=== PATIENT | male | born 1975 | race Two or more races ===

== ENCOUNTER 2019-07-19 05:02 | Emergency (ER) | payer OTHER, BC ==
[~2019-07-19] VITALS: Ht 180.3 cm; Wt 105.9 kg
[2019-07-19 05:07] VITALS: Ht 180.3 cm; Wt 105.9 kg
[2019-07-19 07:05] VITALS: BP 144/92
== END 2019-07-19 07:05 | disposition home or self-care (01) ==
LOC: ED 05:02
DX: S06.0X0A Concussion without loss of consciousness, initial encounter (principal); S13.4XXA Sprain of ligaments of cervical spine, initial encounter; S39.012A Strain of muscle, fascia and tendon of lower back, initial encounter; S70.12XA Contusion of left thigh, initial encounter; S80.212A Abrasion, left knee, initial encounter; V43.52XA Car driver injured in collision with other type car in traffic accident, initial encounter; Y93.I9 Activity, other involving external motion; Y92.488 Other paved roadways as the place of occurrence of the external cause; Y99.8 Other external cause status